=== PATIENT | male | born 1975 | race Caucasian/White ===

== ENCOUNTER 2016-07-18 16:29 | Emergency (ER) | payer BC ==
[~2016-07-18] VITALS: Ht 175.3 cm; Wt 88.9 kg
[2016-07-18 16:31] VITALS: TEMP 37.1; Ht 175.3 cm; Wt 88.9 kg
[2016-07-18] MEDS ORDERED: PANTOprazole SOD 40 MG TAB PO STA (16:38)
[2016-07-18 17:11] LABS: HEMATOCRIT 39.7 % (42-52); MEAN CELL VOLUME 87.1 fL (80-100); MEAN CORPUSCULAR HEMOGLOBIN 31.1 pg (25-34); MEAN CORPUSCULAR HGB CONC 35.8 g/dl (32-36); MEAN PLATELET VOLUME 9.7 fL (7.4-10.4); PLATELET COUNT 168 K/uL (130-400); RED BLOOD COUNT 4.56 M/uL (4.7-6.1); WHITE BLOOD COUNT 4.12 K/uL (4.8-10.8)
--- NOTE | 2016-07-18 17:15 | EMERGENCY ROOM VISIT NOTE ---
History Report prepared by Mandi: Madie Cardenas Under the Supervision of: Dr. Raymon Kent M.D. First contact with patient: 16:37 Chief Complaint: VOMITING Stated Complaint: BLOOD IN VOMIT History of Present Illness The patient is a 40 year old male who presents to the Emergency Room with complaints of resolved blood in vomit starting 4 days ago. The vomiting resolved 3 days ago. As per , the patient had very forceful vomiting episodes. He noticed a small amount of blood in the first vomiting episode. After about 2-3 hours of intermittent vomiting, the patient noticed a blood clot in the vomit. He also had diarrhea. The patient denies any black/bloody stools. He has had a fever for the past few days which resolved yesterday. He continues to complain of mild, diffuse abdominal pain from vomiting. He did not have any vomiting or diarrhea episodes today. The patient complains of some lightheadedness today. As per , the patient started eating as normal yesterday. He reports a normal appetite and a normal fluid intake. The patient denies any recent ill contacts. He denies any blood thinners. He denies any heavy aspirin or Advil use. The patient does not have a history of abdominal surgeries. The patient denies chest pain, shortness of breath, or any other complaints. Onset: 4 days ago Position: other (global) Quality: other (blood in vomit) Timing: resolved Associated Symptoms: + abdominal pain, + diarrhea, + fevers (resolved), No SOB, No chest pain Review of Systems See HPI for pertinent positives & negatives. A total of 10 systems reviewed and were otherwise negative. Past Medical & Surgical Medical Problems: (1) No Known Active Medical Problems Family History Patient reports no known family medical history. Social History Smoking Status: Never Smoker Marital Status: Occupation Status: employed Current/Historical Medications Scheduled Citalopram Hydrobromide (Citalopram Hydrobromide), 1 TAB PO DAILY Pantoprazole (Protonix), 20 MG PO DAILY Allergies Coded Allergies: Sulfa Antibiotics (Verified Allergy, Unknown, rash, 07/18/16) Physical Exam Vital Signs Date Time Temp Pulse Resp B/P Pulse Ox O2 Delivery O2 Flow Rate FiO2 07/18/16 16:31 37.1 66 18 183/111 99 Room Air Physical Exam GENERAL: Patient is in no acute distress. HEENT: No acute trauma, normocephalic atraumatic, mucous membranes moist, no nasal congestion, no scleral icterus. NECK: No stridor, no adenopathy, no meningismus, trachea is midline. LUNGS: Clear to auscultation bilaterally, no wheeze, no rhonchi, breath sounds equal. HEART: Without murmurs gallops or rubs, regular rate and rhythm. ABDOMEN: Soft, nontender, bowel sounds positive, no hernias, no peritonitis. RECTAL: Brown stool, heme negative. EXTREMITIES: No cyanosis or edema, full range of motion of all the joints without pain or difficulty, no signs for acute trauma. NEUROLOGIC: Oriented x 3, no acute motor or sensory deficits, no focal weakness. SKIN: No rash, no jaundice, no diaphoresis. Medical Decision & Procedures ER Provider Diagnostic Interpretation: X-ray results as stated below per interpretation by me and the radiologist: ABDOMEN 2VIEW W/PA CHEST RTN CLINICAL HISTORY: Generalized abdominal pain, nausea, vomiting. COMPARISON STUDY: No previous studies for comparison. FINDINGS: The erect chest reveals no free air. There is no focal pulmonary consolidation.] Supine views the abdomen reveal no abnormally dilated loops of large or small bowel. There are no transition zones indicate bowel obstruction. There is no conventional radiographic evidence of organomegaly. There are no calcifications suspicious for renal calculi. A left pelvic basin calcification likely represents a phlebolith. IMPRESSION: No evidence of bowel obstruction. No evidence of free air. Electronically signed by: Elton Verde M.D. 07/18/2016 5:38 PM Dictated Date/Time: 07/18/2016 5:37 PM Laboratory Results 07/18/16 17:00 07/18/16 17:00 Test 07/18/16 17:00 Red Blood Count 4.56 M/uL (4.7-6.1) Mean Corpuscular Volume 87.1 fL (80-100) Mean Corpuscular Hemoglobin 31.1 pg (25-34) Mean Corpuscular Hemoglobin Concent 35.8 g/dl (32-36) RDW Standard Deviation 42.2 fL (36.4-46.3) RDW Coefficient of Variation 13.2 % (11.5-14.5) Mean Platelet Volume 9.7 fL (7.4-10.4) Anion Gap 10.0 mmol/L (3-11) Est Creatinine Clear Calc Drug Dose 110.6 ml/min Estimated GFR () 111.9 Estimated GFR (Non- 96.6 BUN/Creatinine Ratio 14.0 (10-20) Calcium Level 8.3 mg/dl (8.5-10.1) Laboratory results reviewed by me. Medications Administered Medications (Trade) Dose Ordered Sig/Vaughn Route Start Time Stop Time Status Last Admin Dose Admin Pantoprazole Sodium (Protonix Tab) 40 mg NOW STAT PO 07/18/16 16:38 07/18/16 16:52 DC 07/18/16 17:10 40 MG ED Course 1637: The patient was evaluated in room B10. A complete history and physical exam was performed. 1638: Protonix Tab 40 mg PO 1755: Reevaluated the patient. Discussed results and discharge instructions: He verbalized understanding and agreement. The patient is ready for discharge. Medical Decision Differential diagnosis includes but is not limited to Caitlyn-Connolly tear, esophageal rupture, gastritis, ulcer, anemia, GI bleed, viral illness, and dehydration. There is no leukocytosis or anemia. No significant electrolyte abnormality or kidney failure. Abdominal series shows no mediastinal widening, pneumonia, free air or bowel obstruction. On exam, the patient was not toxic or febrile. There was no peritonitis. Rectal exam showed brown stool, heme-negative. The patient was reassured by his findings. I suspect he had a viral illness and had a small Caitlyn-Connolly tear. He is going to be started on Protonix to help with healing. He was given 1 dose here orally. He is being discharged home. Impression Primary Impression: Hematemesis Additional Impression: Vomiting and diarrhea Scribe Attestation The scribe's documentation has been prepared under my direction and personally reviewed by me in its entirety. I confirm that the note above accurately reflects all work, treatment, procedures, and medical decision making performed by me. Departure Information Dispostion Home / Self-Care Prescriptions Pantoprazole (Protonix) 20 Mg Tab 20 MG PO DAILY, #30 TAB Prov: Raymon Kent M.D. 07/18/16 Referrals Jackie Ventura D.O. (PCP) Forms HOME CARE DOCUMENTATION FORM, IMPORTANT VISIT INFORMATION Patient Instructions My [facility] Additional Instructions protonix daily for 1 month follow with michelle lopez for recheck lab testing and imaging was all ok stool tested negative for blood Problem Qualifiers
[2016-07-18] MEDS ORDERED: CITA20TA4 PO (17:17)
[2016-07-18 17:30] LABS: CALCIUM 8.3 mg/dl (8.5-10.1); CREATININE 0.97 mg/dl (0.60-1.40); POTASSIUM 3.3 mmol/L (3.5-5.1)
--- NOTE | 2016-07-18 17:39 | DIAGNOSTIC IMAGING REPORT ---
ABDOMEN 2VIEW W/PA CHEST RTN CLINICAL HISTORY: Generalized abdominal pain, nausea, vomiting. COMPARISON STUDY: No previous studies for comparison. FINDINGS: The erect chest reveals no free air. There is no focal pulmonary consolidation.] Supine views the abdomen reveal no abnormally dilated loops of large or small bowel. There are no transition zones indicate bowel obstruction. There is no conventional radiographic evidence of organomegaly. There are no calcifications suspicious for renal calculi. A left pelvic basin calcification likely represents a phlebolith. IMPRESSION: No evidence of bowel obstruction. No evidence of free air. Electronically signed by: Elton Verde M.D. 07/18/2016 5:38 PM Dictated Date/Time: 07/18/2016 5:37 PM
[2016-07-18] MEDS ORDERED: PRT/20 PO (17:54)
[2016-07-18 18:18] VITALS: BP 123/91; PULSE 55; O2SAT 99
== END 2016-07-18 18:25 | disposition home or self-care (01) ==
LOC: C.EDB 16:30
DX: K92.0 Hematemesis (principal); R19.7 Diarrhea, unspecified; Z79.899 Other long term (current) drug therapy

== ENCOUNTER 2017-06-11 17:02 | Emergency (ER) | payer BC ==
[~2017-06-11] VITALS: Ht 175.3 cm; Wt 90.7 kg
[~2017-06-11 17:02] MED LIST: CITA20TA4 PO
[2017-06-11 17:05] VITALS: Ht 175.3 cm; Wt 90.7 kg
[2017-06-11] MEDS ORDERED: SODIUM CHLORIDE 0.9% 1000ML 1,000 ML IV STA (17:16)
[2017-06-11 17:36] VITALS: O2SAT 97
--- NOTE | 2017-06-11 17:40 | EMERGENCY ROOM VISIT NOTE ---
History Report prepared by Mandi: Kerwin Jaeger Under the Supervision of: Dr. Cem Lezama M.D. First contact with patient: 17:10 Chief Complaint: CARDIAC ASSESSMENT Stated Complaint: SPIKED HEART RATE, ELEVATED HR, HIGH BP History of Present Illness The patient is a 41 year old male who presents to the Emergency Room with complaints of tachycardia that occurred 3 hours ago. At this time, the patient was running for 40 minutes on the treadmill which is part of his normal routine. Normally, his heart rate only raises to 160-170 bpm. However, in his "cool down" phase of his run, he noticed that his heart rate was showing numbers above 190. He tried to walk so his rate could decrease, but it took a longer time than it usually does. It reduced to the 160s after 15 minutes, so he went to see the technology trainer. They took his blood pressure and his heart rate which were 150/110 and 143 respectively. However, he does not usually take his blood pressure after runs, so he does not know what is normal for him. About 15 minutes after this, his heart rate decreased back down to the 100s. He is currently feeling back to his baseline and denies any abnormal symptoms. The patient notes that something similar happened to him about 5 years ago. He received an ECG and wore a Holter monitor for 24 hours that were both negative. After his episode today, he called his PCP who referred him to the ER. He has a family history of cardiac disease that presented itself while his family was around 50 years old. However, he does not have any personal history of cardiac disease, hypertension, diabetes, or cancers excluding his small basal cell skin carcinoma. He is taking Citalopram and Pantoprazole for his anxiety and GERD. He did not drink any coffee today, only having a cup of green tea. He is not on any nutritional supplements. He notes that this past weekend, he had an episode of nausea and palpitations that were abnormal. He denies any recent long car rides. Source of History: patient Onset: 3 hours ago Position: other (Heart) Symptom Intensity: 190+ Quality: other (Tachycardia) Timing: resolved Note: While his heart rate was elevated, he did not have any associated symptoms. He currently denies any abnormal symptoms as well. Review of Systems See HPI for pertinent positives and negatives. A total of ten systems were reviewed and were otherwise negative. Past Medical & Surgical Medical Problems: (1) No Known Active Medical Problems Family History Patient reports no known family medical history. Social History Smoking Status: Never Smoker Smokeless Tobacco Use: No Drug Use: none Marital Status: Occupation Status: employed Current/Historical Medications Scheduled Citalopram Hydrobromide (Citalopram Hydrobromide), 20 MG PO QPM Pantoprazole (Protonix), 20 MG PO DAILY Allergies Coded Allergies: Sulfa Antibiotics (Verified Allergy, Unknown, rash, 06/11/17) Physical Exam Vital Signs Date Time Temp Pulse Resp B/P (MAP) Pulse Ox O2 Delivery O2 Flow Rate FiO2 06/11/17 19:07 37.3 74 16 163/103 99 06/11/17 18:39 70 16 153/94 100 Room Air 06/11/17 17:36 97 Room Air 06/11/17 17:18 90 06/11/17 17:17 97 Room Air 06/11/17 17:05 37.3 87 20 159/113 97 Room Air Physical Exam GENERAL: Awake, alert, well-appearing, in no distress HENT: Normocephalic, atraumatic. Oropharynx reveals dry mucous membranes. EYES: Normal conjunctiva. Sclera non-icteric. NECK: Supple. No nuchal rigidity. FROM. No JVD. RESPIRATORY: Clear to auscultation. CARDIAC: Regular rate, normal rhythm. Extremities warm and well perfused. Pulses equal. ABDOMEN: Soft, non-distended. No tenderness to palpation. No rebound or guarding. No masses. RECTAL: Deferred. MUSCULOSKELETAL: Chest examination reveals no tenderness. The back is symmetrical on inspection without obvious abnormality. There is no CVA tenderness to palpation. No joint edema. LOWER EXTREMITIES: Calves are equal size bilaterally and non-tender. No edema. No discoloration. NEURO: Normal sensorium. No sensory or motor deficits noted. SKIN: No rash or jaundice noted. Medical Decision & Procedures ER Provider Diagnostic Interpretation: Radiology results as stated below per my review and radiologist interpretation: CHEST ONE VIEW PORTABLE CLINICAL HISTORY: 41 years-old Male presenting with CHEST PAIN. TECHNIQUE: Portable upright AP view of the chest was obtained. COMPARISON: None. FINDINGS: Cardiomediastinal silhouette normal. Lungs and pleural spaces clear. Osseous structures normal. Upper abdomen normal. IMPRESSION: 1. No acute cardiopulmonary disease. Electronically signed by: Martin Cervantes M.D. 06/11/2017 5:50 PM Dictated Date/Time: 06/11/2017 5:48 PM Laboratory Results 06/11/17 17:53 Red Blood Count 4.96, Mean Corpuscular Volume 86.3, Mean Corpuscular Hemoglobin 31.3, Mean Corpuscular Hemoglobin Concent 36.2, Mean Platelet Volume 10.0, Neutrophils (%) (Auto) 81.0, Lymphocytes (%) (Auto) 14.5, Monocytes (%) (Auto) 3.6, Eosinophils (%) (Auto) 0.4, Basophils (%) (Auto) 0.3, Neutrophils # (Auto) 8.24, Lymphocytes # (Auto) 1.47, Monocytes # (Auto) 0.37, Eosinophils # (Auto) 0.04, Basophils # (Auto) 0.03 06/11/17 17:53 Test 06/11/17 17:53 White Blood Count 10.17 K/uL (4.8-10.8) Red Blood Count 4.96 M/uL (4.7-6.1) Hemoglobin 15.5 g/dL (14.0-18.0) Hematocrit 42.8 % (42-52) Mean Corpuscular Volume 86.3 fL (80-100) Mean Corpuscular Hemoglobin 31.3 pg (25-34) Mean Corpuscular Hemoglobin Concent 36.2 g/dl (32-36) Platelet Count 197 K/uL (130-400) Mean Platelet Volume 10.0 fL (7.4-10.4) Neutrophils (%) (Auto) 81.0 % Lymphocytes (%) (Auto) 14.5 % Monocytes (%) (Auto) 3.6 % Eosinophils (%) (Auto) 0.4 % Basophils (%) (Auto) 0.3 % Neutrophils # (Auto) 8.24 K/uL (1.4-6.5) Lymphocytes # (Auto) 1.47 K/uL (1.2-3.4) Monocytes # (Auto) 0.37 K/uL (0.11-0.59) Eosinophils # (Auto) 0.04 K/uL (0-0.5) Basophils # (Auto) 0.03 K/uL (0-0.2) RDW Standard Deviation 42.3 fL (36.4-46.3) RDW Coefficient of Variation 13.5 % (11.5-14.5) Immature Granulocyte % (Auto) 0.2 % Immature Granulocyte # (Auto) 0.02 K/uL (0.00-0.02) Anion Gap 7.0 mmol/L (3-11) Est Creatinine Clear Calc Drug Dose 96.5 ml/min Estimated GFR () 94.4 Estimated GFR (Non- 81.5 BUN/Creatinine Ratio 15.7 (10-20) Calcium Level 9.1 mg/dl (8.5-10.1) Magnesium Level 2.1 mg/dl (1.8-2.4) Total Bilirubin 0.3 mg/dl (0.2-1) Direct Bilirubin < 0.1 mg/dl (0-0.2) Aspartate Amino Transf (AST/SGOT) 21 U/L (15-37) Alanine Aminotransferase (ALT/SGPT) 33 U/L (12-78) Alkaline Phosphatase 78 U/L (45-117) Troponin I < 0.015 ng/ml (0-0.045) Total Protein 7.9 gm/dl (6.4-8.2) Albumin 4.2 gm/dl (3.4-5.0) Lipase 119 U/L (73-393) Thyroid Stimulating Hormone (TSH) 1.590 uIu/ml (0.300-4.500) Laboratory results reviewed by me Medications Administered Medications (Trade) Dose Ordered Sig/Vaughn Route Start Time Stop Time Status Last Admin Dose Admin Sodium Chloride 1,000 ml @ 999 mls/hr Q1H1M STAT IV 06/11/17 17:16 06/11/17 18:16 DC 06/11/17 17:58 999 MLS/HR ECG Indication: other (Tachycardia) Rate (beats per minute): 75 Rhythm: normal sinus Findings: no acute ischemic change, other (Normal axis) Comparison ECG Date: no prior available ED Course 1709: The patient was evaluated in room B3. A complete history and physical exam was performed. 1909: I reevaluated the patient. Discussed results and discharge instructions: He verbalized understanding and agreement. The patient is ready for discharge. Medical Decision I reviewed the patient's past medical history, medications, and the nursing notes as described above. Differential diagnosis includes but is not limited to: arrhythmia, ACS, CHF, pneumonia, bronchitis, gastritis, dehydration, endocrine abnormalities, and electrolyte abnormalities. The patient is a 41 y/o gentleman with a pmhx of anxiety who presents to the ED with palpitations and report of episode of HR in 140-180s after working out on treadmill for 40 minutes today per HPI. On arrival the is well-appearing in NAD. AFVSS. EKG and CXR unremarkable. Labs otherwise unremarkable including trop wnl > 6 hours from sx onset. Heart score 1, low risk, ACS not likely. Patient appears clinically dry and patient reports only drinking tea and coffee today. Thus sx likely 2/2 mild dehydration in the setting of extensive cardiovascular exercise. w/u reassuring. Findings and plan for follow-up reviewed with patient. Patient agreeable and d/c'd per discharge instructions. Medication Reconcilliation Current Medication List: was personally reviewed by me Blood Pressure Screening Patient's blood pressure: Elevated blood pressure Blood pressure disposition: Referred to PCP Impression Primary Impression: Palpitations Scribe Attestation The scribe's documentation has been prepared under my direction and personally reviewed by me in its entirety. I confirm that the note above accurately reflects all work, treatment, procedures, and medical decision making performed by me. Departure Information Dispostion Home / Self-Care Referrals Jackie Ventura D.O. (PCP) Forms IMPORTANT VISIT INFORMATION Patient Instructions ED Palpitations, My [facility], Tachycardia Additional Instructions Please follow up with your primary care physician in the next 1-3 days for re- evaluation. The cause of your earlier symptoms is unclear at this time but may have been due to mild dehydration. However, your exam, EKG, chest xray, and lab results did not show signs of an emergent condition at this time. Ensure hydration. Return to the emergency department for worsening symptoms as described in the accompanying instructions.
--- NOTE | 2017-06-11 17:52 | DIAGNOSTIC IMAGING REPORT ---
CHEST ONE VIEW PORTABLE CLINICAL HISTORY: 41 years-old Male presenting with CHEST PAIN. TECHNIQUE: Portable upright AP view of the chest was obtained. COMPARISON: None. FINDINGS: Cardiomediastinal silhouette normal. Lungs and pleural spaces clear. Osseous structures normal. Upper abdomen normal. IMPRESSION: 1. No acute cardiopulmonary disease. Electronically signed by: Martin Cervantes M.D. 06/11/2017 5:50 PM Dictated Date/Time: 06/11/2017 5:48 PM
[2017-06-11] MEDS ORDERED: PRT/20 PO (17:53)
[2017-06-11 18:02] LABS: BASO % 0.3 %; BASO ABS # 0.03 K/uL (0-0.2); COMPLETE YES; EOS % 0.4 %; HEMATOCRIT 42.8 % (42-52); IG% 0.2 %; LYMPH % 14.5 %; LYMPH ABS # 1.47 K/uL (1.2-3.4); MEAN CELL VOLUME 86.3 fL (80-100); MEAN CORPUSCULAR HEMOGLOBIN 31.3 pg (25-34); MEAN CORPUSCULAR HGB CONC 36.2 g/dl (32-36); MONO % 3.6 %; PLATELET COUNT 197 K/uL (130-400); RED BLOOD COUNT 4.96 M/uL (4.7-6.1); WHITE BLOOD COUNT 10.17 K/uL (4.8-10.8)
[2017-06-11 18:25] LABS: ALT/SGPT 33 U/L (12-78); AST/SGOT 21 U/L (15-37); BLOOD UREA NITROGEN 17 mg/dl (7-18); BUN/CREATININE RATIO 15.7 (10-20); CALCIUM 9.1 mg/dl (8.5-10.1); CARBON DIOXIDE 25 mmol/L (21-32); CHLORIDE 105 mmol/L (98-107); CREATININE 1.11 mg/dl (0.60-1.40); GLUCOSE 96 mg/dl (70-99); MAGNESIUM 2.1 mg/dl (1.8-2.4); SODIUM 137 mmol/L (136-145)
[2017-06-11 18:36] LABS: ALKALINE PHOSPHATASE 78 U/L (45-117)
[2017-06-11 19:07] VITALS: BP 163/103; PULSE 74; TEMP 37.3; O2SAT 99
== END 2017-06-11 19:11 | disposition home or self-care (01) ==
LOC: C.EDB 17:03
DX: R00.2 Palpitations (principal); F41.9 Anxiety disorder, unspecified; K21.9 Gastro-esophageal reflux disease without esophagitis; Z79.899 Other long term (current) drug therapy

== ENCOUNTER 2017-11-08 16:16 | Emergency (ER) | payer BC ==
[~2017-11-08] VITALS: Ht 175.3 cm; Wt 85.3 kg
[~2017-11-08 16:16] MED LIST changes: +PRT/20 PO
[2017-11-08 16:25] VITALS: Ht 175.3 cm; Wt 85.3 kg
[2017-11-08] MEDS ORDERED: SODIUM CHLORIDE 0.9% 1000ML 1,000 ML IV STA (16:40)
[2017-11-08] MEDS ORDERED: ACETAMINOPHEN 500 MG TAB PO STA (16:40)
--- NOTE | 2017-11-08 16:53 | EMERGENCY ROOM VISIT NOTE ---
History Report prepared by Mandi: Delroy Amaya Under the Supervision of: Dr. Scot Calderón M.D. First contact with patient: 16:33 Chief Complaint: FACIAL PAIN/INJURY Stated Complaint: JAW PAIN WITH SWELLING AND FEVER History of Present Illness The patient is a 42 year old male who presents to the Emergency Room with complaints of a persistent fever that began two days ago. He rates his pain as a 4/10 in severity. The patient states that he noticed he had dental pain a week ago. He reports he saw his dentist who noted that the patient's right lower wisdom tooth was partially impacted. The patient states he was referred for an extraction on November 27 and was prescribed Amoxicillin. He reports that later in the day, the right side of his jaw began to swell. The patient states he called his dentist who prescribed the patient Augmentin. He reports he began the prescription two days ago. He reports the Augmentin helped stabilize the swelling, but reports he developed a fever. The patient states it seems as if the fever subsided until last night when he became diaphoretic. He reports he still had his fever this morning. The patient states he took Motrin at 1445 for his symptoms. He denies smoking and difficulty swallowing. Patient states his dentist did not do any surgical procedure, [place], or tooth extractions. It was just an examination. Source of History: patient Onset: two days ago Position: other (global) Symptom Intensity: 4/10 Timing: other (persistent) Modifying Factors (Relieving): other (Augmentin, Motrin) Associated Symptoms: + diaphoresis Note: Associated symptoms: dental pain, jaw swelling Denies: difficulty swelling. Review of Systems See HPI for pertinent positives and negatives. A total of ten systems were reviewed and were otherwise negative. Past Medical & Surgical Medical Problems: (1) Tooth infection Family History Patient reports no known family medical history. Social History Smoking Status: Never Smoker Drug Use: none Marital Status: Occupation Status: employed Current/Historical Medications Scheduled Amoxicillin & Pot Clavulanate (Amoxicillin/Clavulanate P), 1 TAB PO BID Buspirone Hcl (Buspirone Hcl), 10 MG PO BID Citalopram Hydrobromide (Celexa), 20 MG PO QAM Scheduled PRN Ibuprofen (Advil), 200-600 MG PO Q4H PRN for Pain Allergies Coded Allergies: Sulfa Antibiotics (Verified Allergy, Unknown, rash, 11/08/17) Physical Exam Vital Signs Date Time Temp Pulse Resp B/P (MAP) Pulse Ox O2 Delivery O2 Flow Rate FiO2 11/08/17 19:50 37.3 75 18 152/104 97 Room Air 11/08/17 18:34 67 18 150/97 99 Room Air 11/08/17 16:25 37.8 77 18 155/104 97 Room Air Physical Exam Physical Exam GENERAL: He is oriented to person, place, and time. He appears well-developed and well-nourished. He does not appear distressed. ____ HENT: Exam performed. Head: Normocephalic and atraumatic. Right Ear: External ear normal. No mastoid tenderness. Left Ear: External ear normal. No mastoid tenderness. Mouth/Throat: The oropharynx is clear and moist. No trismus in the jaw. No dental abscesses or uvula swelling. No oropharyngeal exudate or tonsillar abscesses. Pain on percussion of right mandible and wisdom teeth. No submantle or sublingual swelling. No tongue elevation. No physical exam findings concerning for Chris angina. EYES: Conjunctivae and EOM are normal. Pupils are equal, round, and reactive to light. Right eye exhibits no discharge. Left eye exhibits no discharge. No scleral icterus. ____ NECK: Normal range of motion. Neck supple. No JVD present. No spinous process tenderness present. No carotid bruit present. No rigidity. No tracheal deviation and normal range of motion present. No Brudzinski's sign and no Kernig 's sign noted. ____ CV: Normal rate, regular rhythm, normal heart sounds and intact distal pulses. There is no peripheral edema. Palpable radial pulses bue. ____ PULM/CHEST: Effort normal and breath sounds normal. No respiratory distress. No stridor. He has no wheezes. He has no rales. Chest Wall: He exhibits no tenderness. ____ ABD: The abdomen is soft. Bowel sounds are normal. He has no distension. No mass is present. There is no tenderness. There is no rebound, no guarding, no Moralez's sign and no tenderness at McBurney's point. Rovsig negative MUSC/SKEL: Normal range of motion. There is no peripheral edema, tenderness or deformity. LYMPH: No cervical adenopathy. ____ NEURO: He is alert and oriented to person, place, and time. He has normal strength. No cranial nerve deficit or sensory deficit. Coordination and gait normal. GCS eye subscore is 4. GCS verbal subscore is 5. GCS motor subscore is 6. Cerebellar tests wnl. ____ SKIN: Skin is warm and dry. He is not diaphoretic. ____ PSYCH: He has a normal mood and affect. His behavior is normal. Judgment and thought content normal. ____ Medical Decision & Procedures ER Provider Diagnostic Interpretation: Radiology results as stated below per my review and radiologist interpretation: CT FACIAL-MAXILLOFACIAL WITH CT DOSE: 153.81 mGy.cm CLINICAL HISTORY: Severe facial/dental pain TECHNIQUE: The patient was scanned in a dynamic helical fashion during intravenous administration 116 cc of Optiray 320. Sagittal and coronal reformatted images were reviewed. A dose lowering technique was utilized adhering to the principles of ALARA. COMPARISON STUDY: None. FINDINGS: There is subtle inhomogeneous enhancement of the right submandibular gland. An infectious/inflammatory process cannot be excluded. There are prominent right retromandibular jugulodigastric lymph nodes, statistically reactive. No facial fractures are visualized. No orbital lesions are visualized. There is severe angulation of both mandibular wisdom teeth. No soft tissue abscesses are visualized. IMPRESSION: 1. No evidence of soft tissue abscess 2. Slight inhomogeneous enhancement of the right submandibular gland. This may indicate an infectious/inflammatory process. Clinical correlation is advocated 3. Mild right neck adenopathy, statistically reactive. Clinical follow-up is advocated Electronically signed by: Elton Verde M.D. 11/08/2017 7:27 PM Dictated Date/Time: 11/08/2017 7:20 PM Laboratory Results 11/08/17 17:30 Red Blood Count 4.61, Mean Corpuscular Volume 87.6, Mean Corpuscular Hemoglobin 30.6, Mean Corpuscular Hemoglobin Concent 34.9, Mean Platelet Volume 9.6, Neutrophils (%) (Auto) 79.4, Lymphocytes (%) (Auto) 11.4, Monocytes (%) (Auto) 8.2, Eosinophils (%) (Auto) 0.6, Basophils (%) (Auto) 0.3, Neutrophils # (Auto) 8.28, Lymphocytes # (Auto) 1.19, Monocytes # (Auto) 0.85, Eosinophils # (Auto) 0.06, Basophils # (Auto) 0.03 11/08/17 17:30 Test 11/08/17 17:30 White Blood Count 10.42 K/uL (4.8-10.8) Red Blood Count 4.61 M/uL (4.7-6.1) Hemoglobin 14.1 g/dL (14.0-18.0) Hematocrit 40.4 % (42-52) Mean Corpuscular Volume 87.6 fL (80-100) Mean Corpuscular Hemoglobin 30.6 pg (25-34) Mean Corpuscular Hemoglobin Concent 34.9 g/dl (32-36) Platelet Count 177 K/uL (130-400) Mean Platelet Volume 9.6 fL (7.4-10.4) Neutrophils (%) (Auto) 79.4 % Lymphocytes (%) (Auto) 11.4 % Monocytes (%) (Auto) 8.2 % Eosinophils (%) (Auto) 0.6 % Basophils (%) (Auto) 0.3 % Neutrophils # (Auto) 8.28 K/uL (1.4-6.5) Lymphocytes # (Auto) 1.19 K/uL (1.2-3.4) Monocytes # (Auto) 0.85 K/uL (0.11-0.59) Eosinophils # (Auto) 0.06 K/uL (0-0.5) Basophils # (Auto) 0.03 K/uL (0-0.2) RDW Standard Deviation 42.7 fL (36.4-46.3) RDW Coefficient of Variation 13.3 % (11.5-14.5) Immature Granulocyte % (Auto) 0.1 % Immature Granulocyte # (Auto) 0.01 K/uL (0.00-0.02) Anion Gap 6.0 mmol/L (3-11) Est Creatinine Clear Calc Drug Dose 97.3 ml/min Estimated GFR () 99.1 Estimated GFR (Non- 85.5 BUN/Creatinine Ratio 9.1 (10-20) Calcium Level 9.1 mg/dl (8.5-10.1) Laboratory results reviewed by me Medications Administered Medications (Trade) Dose Ordered Sig/Vaughn Route Start Time Stop Time Status Last Admin Dose Admin Sodium Chloride 1,000 ml @ 999 mls/hr Q1H1M STAT IV 11/08/17 16:40 11/08/17 17:40 DC 11/08/17 17:39 999 MLS/HR Acetaminophen (Tylenol Tab) 1,000 mg NOW STAT PO 11/08/17 16:40 11/08/17 16:45 DC 11/08/17 17:39 1,000 MG ED Course 1639: The patient was evaluated in room B06. A complete history and physical exam was performed. 1640: Ordered Tylenol Tab 1000 mg PO, Sodium Chloride 1000 ml @ 999 mls/hr IV. 2007: I reevaluated the patient. Vitals are stable. Patient no acute respiratory distress during the entire emergency department stay, oxygen saturation stable, the CT showed no abscess. The labs are wnl. The patient was encouraged to keep taking Augmentin prescribed by his dentist. DISCHARGE - Plan of care discussed with patient and questions answered. The patient was given both verbal and printed discharge instructions. The patient verbalized understanding and ability to comply. The patient is to seek outpatient follow up as noted in the discharge instructions. The patient verbalized understanding and ability to comply. The patient is discharged in stable condition. The patient was instructed to return for worsening symptoms. Medical Decision Vitals are stable. Patient no acute respiratory distress during the entire emergency department stay, oxygen saturation stable, the CT showed no abscess. The labs are wnl. The patient was encouraged to keep taking Augmentin prescribed by his dentist. DISCHARGE - Plan of care discussed with patient and questions answered. The patient was given both verbal and printed discharge instructions. The patient verbalized understanding and ability to comply. The patient is to seek outpatient follow up as noted in the discharge instructions. The patient verbalized understanding and ability to comply. The patient is discharged in stable condition. The patient was instructed to return for worsening symptoms. Medication Reconcilliation Current Medication List: was personally reviewed by me Blood Pressure Screening Patient's blood pressure: Elevated blood pressure Blood pressure disposition: Referred to PCP Impression Primary Impression: Dental infection Scribe Attestation The scribe's documentation has been prepared under my direction and personally reviewed by me in its entirety. I confirm that the note above accurately reflects all work, treatment, procedures, and medical decision making performed by me. The chart was completed utilizing [employer] Speech voice recognition software. Grammatical errors, random word insertions, pronoun errors, and incomplete sentences are an occasional consequence of this system due to software limitations, ambient noise, and hardware issues. Any formal questions or concerns about the content, text, or information contained within the body of this dictation should be directly addressed to the physician for clarification. Departure Information Dispostion Home / Self-Care Referrals Guy Jaimes M.D. (MEDICAL) (PCP) Forms HOME CARE DOCUMENTATION FORM, IMPORTANT VISIT INFORMATION Patient Instructions My [facility] Additional Instructions Continue taking Augmentin prescribed by her dentist. Take Tylenol 1 g every 6 hours for fever greater than 100.4 and for pain. Follow-up with oral surgeon in your dentist as soon as possible.
[2017-11-08] MEDS ORDERED: IBUP-1050 PO (17:37)
[2017-11-08] MEDS ORDERED: BUSP-8 PO (17:37)
[2017-11-08] MEDS ORDERED: AMOX1TAB43 PO (17:37)
[2017-11-08] MEDS ORDERED: CITA20TA9 PO (17:37)
[2017-11-08 17:43] LABS: BASO % 0.3 %; BASO ABS # 0.03 K/uL (0-0.2); EOS % 0.6 %; EOS ABS # 0.06 K/uL (0-0.5); HEMATOCRIT 40.4 % (42-52); HEMOGLOBIN 14.1 g/dL (14.0-18.0); IG# 0.01 K/uL (0.00-0.02); LYMPH % 11.4 %; LYMPH ABS # 1.19 K/uL (1.2-3.4); MEAN CELL VOLUME 87.6 fL (80-100); MEAN CORPUSCULAR HEMOGLOBIN 30.6 pg (25-34); MEAN CORPUSCULAR HGB CONC 34.9 g/dl (32-36); MEAN PLATELET VOLUME 9.6 fL (7.4-10.4); MONO % 8.2 %; MONO ABS # 0.85 K/uL (0.11-0.59); NEUT % 79.4 %; NEUT ABS # 8.28 K/uL (1.4-6.5); PLATELET COUNT 177 K/uL (130-400); RED CELL DISTRIBUTION WIDTH CV 13.3 % (11.5-14.5); RED CELL DISTRIBUTION WIDTH SD 42.7 fL (36.4-46.3); WHITE BLOOD COUNT 10.42 K/uL (4.8-10.8)
[2017-11-08] MEDS ORDERED: OPTIRAY 320 IV PRN (17:45)
[2017-11-08 18:00] LABS: CALCIUM 9.1 mg/dl (8.5-10.1); CREATININE 1.06 mg/dl (0.60-1.40); POTASSIUM 3.8 mmol/L (3.5-5.1)
--- NOTE | 2017-11-08 19:28 | DIAGNOSTIC IMAGING REPORT ---
CT FACIAL-MAXILLOFACIAL WITH CT DOSE: 153.81 mGy.cm CLINICAL HISTORY: Severe facial/dental pain TECHNIQUE: The patient was scanned in a dynamic helical fashion during intravenous administration 116 cc of Optiray 320. Sagittal and coronal reformatted images were reviewed. A dose lowering technique was utilized adhering to the principles of ALARA. COMPARISON STUDY: None. FINDINGS: There is subtle inhomogeneous enhancement of the right submandibular gland. An infectious/inflammatory process cannot be excluded. There are prominent right retromandibular jugulodigastric lymph nodes, statistically reactive. No facial fractures are visualized. No orbital lesions are visualized. There is severe angulation of both mandibular wisdom teeth. No soft tissue abscesses are visualized. IMPRESSION: 1. No evidence of soft tissue abscess 2. Slight inhomogeneous enhancement of the right submandibular gland. This may indicate an infectious/inflammatory process. Clinical correlation is advocated 3. Mild right neck adenopathy, statistically reactive. Clinical follow-up is advocated Electronically signed by: Elton Verde M.D. 11/08/2017 7:27 PM Dictated Date/Time: 11/08/2017 7:20 PM
[2017-11-08 19:50] VITALS: PULSE 75; TEMP 37.3; O2SAT 97
[2017-11-08 20:26] VITALS: BP 143/107
== END 2017-11-08 20:32 | disposition home or self-care (01) ==
LOC: C.EDB 16:18
DX: K04.7 Periapical abscess without sinus (principal); Z79.899 Other long term (current) drug therapy; Z88.2 Allergy status to sulfonamides